=== PATIENT | female | born 1945 | race Hispanic/Latino ===

== ENCOUNTER 2018-11-07 07:22 | Outpatient (CLI) | payer MEDICARE, OTHER | END 2018-11-07 07:23 | disposition home or self-care (01) | LOC: RAD 07:22 ==

== ENCOUNTER 2018-12-06 07:28 | Day surgery (SDC) | payer MEDICARE, SELFPAY ==
[2018-12-03 13:54] VITALS: BMI 40.1
[2018-12-06 08:05] LABS: BASO # 0.02 K/mm3 (0.0-2.0); BASO % 0.4 % (0.0-3.0); EOS # 0.1 (0.0-0.7); EOS % 1.1 % (1.5-5.0); HEMOGLOBIN 12.8 g/dL (12.0-16.0); LYMPH # 1.1 (1.2-3.4); LYMPH % 21.1 % (22.0-35.0); MEAN CELL VOLUME 91.2 fl (80.0-105.0); MEAN CORPUSCULAR HEMOGLOBIN 28.9 pg (25.0-35.0); MEAN CORPUSCULAR HGB CONC 31.7 g/dl (31.0-37.0); MEAN PLATELET VOLUME 9.9 fl (7.0-11.0); MONO # 0.6 (0.1-0.6); MONO % 11.7 % (1.0-6.0); RBC 4.43 10^6/uL (3.5-6.1); RED CELL DISTRIBUTION WIDTH 14.7 % (11.5-14.5); WHITE BLOOD COUNT 5.3 10^3/uL (4.5-11.0)
[2018-12-06 08:14] LABS: ALB/GLOB RATIO 1.3 (1.1-1.8); ALBUMIN 4.4 g/dL (3.0-4.8); ALT/SGPT 23 U/L (7-56); AMYLASE 56 U/L (35-125); AST/SGOT 25 U/L (14-36); BLOOD UREA NITROGEN 22 mg/dL (7-21); CALCIUM 9.4 mg/dL (8.4-10.5); GAMMA GLUTAMYL TRANSPEPTIDASE 26 U/L (8-78); GFR NON-AFRICAN AMERICAN > 60; INR 1.09; LIPASE 48 U/L (23-300); PARTIAL THROMBOPLASTIN TIME 31.3 Seconds (26.9-38.3); PROTHROMBIN TIME 12.3 SECONDS (9.4-12.5)
[2018-12-06] MEDS ORDERED: Propofol 10 mg/ml Inj (20 ML) ONE ×4 (09:09→10:23)
[2018-12-06] MEDS ORDERED: Etomidate 20 mg/10ml Inj IV ONE (09:09)
[2018-12-06] MEDS ORDERED: Sodium Chloride 0.9% 1,000 ML IV SCH (10:45)
[2018-12-06 11:30] VITALS: BP 145/72; PULSE 64; RESP 18; TEMP 97.9; O2SAT 98
== END 2018-12-06 12:00 | disposition home or self-care (01) ==
LOC: ENDO 07:28
PROVIDERS: ATTEND Internal Medicine Gastroenterology
DX: K31.7 Polyp of stomach and duodenum (principal); K29.70 Gastritis, unspecified, without bleeding; K21.9 Gastro-esophageal reflux disease without esophagitis; Z87.11 Personal history of peptic ulcer disease
CPT/HCPCS: 36415; 43237; 43239; 80053; 82150; 82977; 83690; 85025; 85610; 85730; 88305; 88342; J2001; J2704; J7030; J7040

== ENCOUNTER 2019-01-02 11:05 | Outpatient (CLI) | payer MEDICARE, OTHER | END 2019-01-02 11:06 | disposition home or self-care (01) | LOC: RAD 11:05 | DX: M54.5 Low back pain (principal) ==